=== PATIENT | male | born 1935 | race Caucasian/White ===

== ENCOUNTER 2024-04-05 08:59 | Day surgery (SDC) | payer OTHER, MEDICARE ==
[2024-03-30 15:18] VITALS: BMI 30.7
[2024-04-05] MEDS ORDERED: MIDAZOLAM HCL 2 MG/2 ML SINGLE DOSE VIAL ONE (10:21)
[2024-04-05] MEDS ORDERED: PROPOFOL 20 ML ONE ×2 (10:21→11:12)
[2024-04-05] MEDS ORDERED: ceFAZolin SODIUM 1 GM VIAL ONE (10:39)
[2024-04-05] MEDS ORDERED: ERYTHROMYCIN 0.5% OPHTHALMIC OINTMENT 3.5 GM TUBE ONE (10:40)
[2024-04-05] MEDS ORDERED: TETRACAINE 0.5% OPHTH SOLN 2 ML BOTTLE ONE (10:40)
[2024-04-05] MEDS ORDERED: POVIDONE-IODINE 5% OPHTHALMIC PREP 30 ML SOLUTION ONE (10:40)
[2024-04-05] MEDS ORDERED: BUPIVACAINE HCL/PF 0.5% (5MG/ML) 10 ML VIAL ONE (10:40)
[2024-04-05] MEDS ORDERED: LIDOCAINE 1%/EPI 1:100000 (20 ML MULTI DOSE VIAL) ONE (10:40)
[2024-04-05] MEDS ORDERED: ONDANSETRON 4 MG/2 ML VIAL IVPUSH PRN (12:12)
[2024-04-05] MEDS ORDERED: ACETAMINOPHEN 325 MG TABLET (FP) PO PRN (12:12)
[2024-04-05] MEDS ORDERED: LACTATED RINGERS SOLUTION 1,000 ML IV SCH (12:15)
[2024-04-05] MEDS: ACETAMINOPHEN 1000 MG/100 ML BAG IVPB ONE (12:45)
[2024-04-05] MEDS ORDERED: FENTANYL CITRATE/PF 50 MCG/ML VIAL ONE (12:48)
[2024-04-05] MEDS ORDERED: ACETAMINOPHEN INJECTION 100 ML ONE (12:49)
[2024-04-05 13:12] VITALS: RESP 16
[2024-04-05 13:38] VITALS: TEMP 97.4
[2024-04-05 14:12] VITALS: BP 121/64; PULSE 63
== END 2024-04-05 14:38 | disposition home or self-care (01) ==
LOC: FASU 08:59
PROVIDERS: ATTEND Ophthalmology
PROC: 08SQ0ZZ Reposition Right Lower Eyelid, Open Approach (ICD-10-PCS; 2024-04-05)
PROC: 08SR0ZZ Reposition Left Lower Eyelid, Open Approach (ICD-10-PCS; principal; 2024-04-05 11:31)
DX: H02.132 Senile ectropion of right lower eyelid (principal); H02.135 Senile ectropion of left lower eyelid; H04.203 Unspecified epiphora, bilateral; H04.563 Stenosis of bilateral lacrimal punctum
CPT/HCPCS: 82962; 94760; J0131